=== PATIENT | female | born 1995 | race Caucasian/White ===

== ENCOUNTER 2018-06-14 08:32 | Emergency (ER) | payer BC ==
[2018-06-14 08:43] VITALS: BP 151/95
[2018-06-14] MEDS ORDERED: Ibuprofen TAB* 600 MG PO ONE (08:51)
--- NOTE | 2018-06-14 10:09 | UC ---
Lower Extremity/Ankle HPI - HPI Summary HPI Summary: 22 year old female comes to clinic today with a chief complaint of left hip and leg pain after a fall. Patient slipped on the ice at home this morning. Pain at the left hip and left knee and left ankle. She was able to bear weight but with quite a bit of pain. No weakness or numbness. No clinic back pain. Movement makes the pain worse resting decreases the pain. - History of Current Complaint Chief Complaint: UCLowerExtremity Stated Complaint: FELL HIP/LEG INJURY Time Seen by Provider: 06/14/18 08:46 Hx Last Menstrual Period: 3 mo ago Pain Intensity: 10 - Allergies/Home Medications Allergies/Adverse Reactions: Allergies Allergy/AdvReac Type Severity Reaction Status Date / Time codeine Allergy Itching Verified 06/14/18 08:44 ketorolac Allergy Hives Verified 06/14/18 08:44 Penicillins Allergy Swelling Verified 06/14/18 08:44 tramadol Allergy Hives Uncoded 06/14/18 08:44 PMH/Surg Hx/FS Hx/Imm Hx Previously Healthy: Yes - Surgical History Surgical History: None - Family History Known Family History: Positive: Other - no bone disease; parents living and healthy - Social History Alcohol Use: None Substance Use Type: None Smoking Status (MU): Never Smoked Tobacco Have You Smoked in the Last Year: No Review of Systems All Other Systems Reviewed And Are Negative: Yes Constitutional: Positive: Negative Skin: Positive: Negative Eyes: Positive: Negative ENT: Positive: Negative Respiratory: Positive: Negative Cardiovascular: Positive: Negative Gastrointestinal: Positive: Negative Motor: Positive: Negative Neurovascular: Positive: Negative Musculoskeletal: Positive: Other: - SEE HPI Neurological: Positive: Negative Psychological: Positive: Negative Is Patient Immunocompromised?: No Physical Exam Triage Information Reviewed: Yes Appearance: Well-Appearing, Well-Nourished, Pain Distress - MILD WITH MOVEMENT Vital Signs: Initial Vital Signs Temp 97.3 F 06/14/18 08:39 Pulse 87 06/14/18 08:39 Resp 14 06/14/18 08:39 BP 151/95 06/14/18 08:39 Pulse Ox 100 06/14/18 08:39 Vital Signs Reviewed: Yes Eye Exam: Normal Eyes: Positive: Conjunctiva Clear Neck exam: Normal Neck: Positive: Supple Respiratory: Positive: No respiratory distress Musculoskeletal: Positive: Other: - Patient is tender to palpation tender to palpation over the left hip and iliac crest. The left knee and ankle are both tender to palpation. There is no effusion in the left knee. Tenderness is primarily on the lateral aspect of the knee. No obvious deformity of the knee. Midshaft femur and tibia and fibula are nontender to palpation. Lateral ankle is mildly swollen tender to palpation over the lateral malleolus. Achilles tendon is intact. Foot is nontender to palpation. Capillary refill no sensation deficits normal pulses. No skin break. Neurological Exam: Normal Neurological: Positive: Alert, Muscle Tone Normal Psychological Exam: Normal Psychological: Positive: Normal Response To Family, Age Appropriate Behavior Skin Exam: Normal Lower Extremity Course/Dx - Course Course Of Treatment: Order Information: KNEE LEFT 4+ VWS. Accession Number: [id number]. CPT: 18086. Indication: LEFT knee pain post fall. Comparison: October 25, 2012. Technique: LEFT knee: AP, tunnel, lateral, sunrise views. Report: Negative for joint effusion, fracture, or malalignment. Preserved joint spaces. Unremarkable soft tissue contours. IMPRESSION: #. Negative exam. ___ . <Electronically signed by Sharan Marinelli MD in [facility]> 06/14/18 0936. Order Information: HIP LEFT 2 VIEWS AND PELVIS. Accession Number: [id number]. CPT: 98170. Indication: LEFT hip pain post fall. Comparison: January 09, 2017 CT. Technique: AP pelvis and AP and frog-leg lateral views LEFT hip. Report: Normally located LEFT hip. Negative for LEFT proximal femur fracture. Preserved. hip joint spaces. Negative for pelvic fracture or joint diastases. Unremarkable soft. tissue contours. IMPRESSION: #. No radiographic evidence for LEFT hip fracture. Negative radiographic exam of the LEFT. hip. . <Electronically signed by Sharan Marinelli MD in [facility]> 06/14/18 0935. Order Information: ANKLE LEFT 3+VWS. Accession Number: [id number]. CPT: 87531. Indication: Lateral LEFT ankle pain post fall. Comparison: June 14, 2010. Technique: AP, mortise, and lateral views LEFT ankle. REPORT AND IMPRESSION: #. Unchanged small accessory ossicle inferior to the lateral malleolus. Negative for. fracture or malalignment. Mild soft tissue swelling over the lateral malleolus similar in. magnitude to the 2009 exam. . <Electronically signed by Sharan Marinelli MD in [place]> 06/14/18 0951. I discussed the x-rays with the patient and her . Is wraps were applied to left knee and ankle. Neurovascularly intact after application by nursing. Patient also started on crutches. Overall plan will be to ice the injured areas rest and elevate and ibuprofen. Reevaluation if worse or not improving. - Differential Dx/Diagnosis Provider Diagnosis: Contusion of left hip, Strain of left knee, Left ankle sprain Discharge - Sign-Out/Discharge Documenting (check all that apply): Patient Departure All imaging exams completed and their final reports reviewed: Yes - Discharge Plan Condition: Stable Disposition: HOME Patient Education Materials: Ankle Sprain (ED), Knee Sprain (ED), Hip Contusion (ED), Crutch Instructions (ED) Forms: *Work Release Referrals: Juan Chong MD [Primary Care Provider] - Additional Instructions: FOLLOW UP WITH YOUR DOCTOR IF NOT COMPLETELY IMPROVED. GET RECHECKED FOR ANY WORSENING OF YOUR CONDITION OR QUESTIONS OR CONCERNS. - Billing Disposition and Condition Condition: STABLE Disposition: Home
== END 2018-06-14 10:29 | disposition home or self-care (01) ==
LOC: UCEAST 08:32
DX: S70.02XA Contusion of left hip, initial encounter (principal); S93.402A Sprain of unspecified ligament of left ankle, initial encounter; S83.92XA Sprain of unspecified site of left knee, initial encounter; W00.0XXA Fall on same level due to ice and snow, initial encounter; Y92.009 Unspecified place in unspecified non-institutional (private) residence as the place of occurrence of the external cause; Z88.6 Allergy status to analgesic agent; Z88.8 Allergy status to other drugs, medicaments and biological substances; Z88.0 Allergy status to penicillin; Z88.5 Allergy status to narcotic agent
CPT/HCPCS: 99213; A9270-GY; G0463

== ENCOUNTER 2022-04-07 14:03 | Inpatient (IN) ==
[2022-04-07] MEDS ORDERED: Oxytocin in LR 20,000 MILLI.UNIT/1,000 ML BAG IV SCH (15:00)
[2022-04-07 15:27] LABS: ABS Eosinophils 0.1 10^3/ul (0-0.6); ABS Lymphocytes 1.6 10^3/ul (1.0-4.8); ABS Monocytes 0.6 10^3/ul (0-0.8); ABS Neutrophils 7.2 10^3/ul (1.5-7.7); Eosinophil % 0.9 %; Hematocrit 31 % (35-47); Hemoglobin 9.6 g/dL (12.0-16.0); Lymphocyte % 17.2 %; Mean Corpuscular HGB Conc 31 g/dL (31-36); Mean Corpuscular Hemoglobin 25 pg (27-31); Mean Corpuscular Volume 79 fL (80-97); Mean Platelet Volume 9.7 fL (7.4-10.4); Nucleated Red Blood Cells % 0.1; Platelet Count 260 10^3/uL (150-450); Red Blood Count 3.88 10^6 /uL (3.70-4.87); Red Cell Distribution Width 15 % (10-15); White Blood Count 9.5 10^3/uL (3.5-10.8)
[2022-04-07] MEDS: Lactated Ringers 1000 ml BAG 1,000 ML IV SCH ×3 (15:45→23:19)
[2022-04-07 16:12] LABS: Urine Benzodiazepine Screen None Detected (None Detect); Urine Cannabinoids Screen None Detected (None Detect); Urine Opiates Screen None Detected (None Detect)
[2022-04-07 16:16] LABS: Calcium 9.6 mg/dL (8.6-10.3); Potassium 4.2 mmol/L (3.5-5.0); Total Bilirubin 0.2 mg/dL (0.2-1.0)
[2022-04-07 16:22] LABS: Albumin/Globulin Ratio 1.1 (1-3); Globulin 2.7 g/dL (2-4); Total Protein 5.7 g/dL (6.4-8.9); Uric Acid 7.4 mg/dL (2.3-6.6); eGFR CKD-EPI 102.9 (>60)
[2022-04-07] MEDS ORDERED: OBEPIDURAL (200 ML) 200 ML EPIDURAL ONE (18:49)
[2022-04-07] MEDS ORDERED: Phenylephrine 40 mcg/mL 10mL (400mcg) SYRINGE IV PUSH PRN ×2 (19:55)
[2022-04-07] MEDS ORDERED: Sodium Citrate/Citric Acid LIQ 15 ML UDC PO PRN (19:55)
[2022-04-07] MEDS ORDERED: Lactated Ringers 1000 ml BAG 1,000 ML IV ONE (19:55)
[2022-04-07] MEDS ORDERED: Lactated Ringers 1000 ml BAG 1,000 ML IV SCH (20:00)
[2022-04-07] MEDS ORDERED: OBEPIDURAL (200 ML) 200 ML EPIDURAL SCH (20:00)
[2022-04-07 20:12] LABS: Urine Appearance Cloudy; Urine Bilirubin Negative (Negative); Urine Blood Negative (Negative); Urine Color Yellow; Urine Glucose Negative (Negative); Urine Ketones Negative (Negative); Urine Nitrite Negative (Negative); Urine Protein 1+(30 mg/dL) (Negative); Urine Urobilinogen Negative (Negative)
[2022-04-07 20:15] LABS: Urine Bacteria 1+ (Absent); Urine Red Blood Cell Trace(0-2/hpf) (Absent); Urine Squamous Epithelial Cell Present (Absent); Urine White Blood Cell Absent (Absent)
[2022-04-08] MEDS: Ondansetron 4 mg VIAL 2 MG/ML 2 ml VIAL IV PRN ×2 (02:58→17:37)
[2022-04-08] MEDS: Lactated Ringers 1000 ml BAG 1,000 ML IV SCH ×2 (08:30→18:23)
[2022-04-08] MEDS ORDERED: OBEPIDURAL (200 ML) 200 ML EPIDURAL ONE ×2 (09:13→16:49)
[2022-04-08] MEDS ORDERED: Lidocaine 2% w/ EPI 1:200,000 MPF 20 ML SDV VIAL ONE ×2 (16:21→22:31)
[2022-04-08] MEDS ORDERED: fentaNYL 100 mcg/2 ml 50 MCG/ML VIAL ONE ×2 (16:21→20:19)
[2022-04-08] MEDS ORDERED: ceFOXitin 2 GM IVPREMIX 2 GM/50 ML BAG IVPB ONE (17:52)
[2022-04-08] MEDS ORDERED: Lactated Ringers 1000 ml BAG 1,000 ML IV ONE (19:08)
[2022-04-08] MEDS ORDERED: Phenylephrine 40 mcg/mL 10mL (400mcg) SYRINGE IV PUSH PRN (19:08)
[2022-04-08] MEDS ORDERED: Naloxone 0.4 mg VIAL 0.4 mg/ml 1 ml VIAL IV PRN (19:17)
[2022-04-08] MEDS ORDERED: Lactated Ringers 1000 ml BAG 1,000 ML IV SCH (20:00)
[2022-04-08] MEDS ORDERED: Chloroprocaine 3% 20 ml VIAL ONE (20:19)
[2022-04-08] MEDS ORDERED: Morphine PF AMP (0.5MG/ML) 5 MG/10 ML AMP ONE (20:19)
[2022-04-08] MEDS ORDERED: Metoclopramide 5 MG/ML VIAL (10 mg) ONE (20:20)
[2022-04-08] MEDS ORDERED: Oxytocin 10 UNITS/ML 1 ML VIAL ONE (20:20)
[2022-04-08] MEDS ORDERED: Ondansetron 4 mg VIAL 2 MG/ML 2 ml VIAL ONE ×2 (20:20→21:51)
[2022-04-08] MEDS ORDERED: Dexamethasone IV 4 MG/ML VIAL 1 ml VIAL ONE (21:51)
[2022-04-08] MEDS ORDERED: ceFAZolin VIAL VIAL ONE (22:28)
[2022-04-08] MEDS ORDERED: Bupivacaine 0.25% w/EPI 10 ML SDV ONE (22:31)
[2022-04-08] MEDS ORDERED: Furosemide 20 mg/2 ml IV VIAL ONE (22:44)
[2022-04-09] MEDS: HYDROcodone/ACETAMIN 5/325 mg TAB PO PRN ×3 (03:47→14:33)
[2022-04-09] MEDS ORDERED: Dibucaine 1% OINT 28.35 GM TUBE PR PRN (06:35)
[2022-04-09] MEDS ORDERED: Glycerin ADULT 2.4 gm SUPP PR PRN (06:35)
[2022-04-09] MEDS ORDERED: RHO D Immune Globulin (HUMAN) 300 MCG = 1,500 I.U. INJ IM PRN (06:35)
[2022-04-09] MEDS ORDERED: Witch Hazel PAD JAR TOPICAL PRN (06:35)
[2022-04-09] MEDS ORDERED: Oxytocin in LR 20,000 MILLI.UNIT/1,000 ML BAG IV SCH (06:45)
[2022-04-09] MEDS ORDERED: Lactated Ringers 1000 ml BAG 1,000 ML IV SCH (07:00)
[2022-04-09] MEDS: Ondansetron 4 mg VIAL 2 MG/ML 2 ml VIAL IV PRN (09:06)
[2022-04-09 12:12] LABS: ABS Lymphocytes 0.9 10^3/ul (1.0-4.8); ABS Monocytes 0.8 10^3/ul (0-0.8); ABS Neutrophils 14.9 10^3/ul (1.5-7.7); Hematocrit 25 % (35-47); Hemoglobin 7.6 g/dL (12.0-16.0); Lymphocyte % 5.7 %; Mean Corpuscular HGB Conc 31 g/dL (31-36); Mean Corpuscular Hemoglobin 24 pg (27-31); Mean Corpuscular Volume 80 fL (80-97); Mean Platelet Volume 8.9 fL (7.4-10.4); Platelet Count 255 10^3/uL (150-450); Red Blood Count 3.13 10^6 /uL (3.70-4.87); Red Cell Distribution Width 15 % (10-15); White Blood Count 16.7 10^3/uL (3.5-10.8)
[2022-04-09] MEDS ORDERED: Influenza vaccine *QUAD* *2022-23* 0.5 ML SYRINGE IM ONE (12:38)
[2022-04-11 07:52] VITALS: BP 150/89
== END 2022-04-11 15:30 | disposition home or self-care (01) | DRG 788 ==
LOC: MCHOBOUT 14:03 → MCHOB 14:09
PROVIDERS: ADMIT Midwife; ATTEND Midwife